=== PATIENT | female | born 1990 | race Caucasian/White ===

== ENCOUNTER 2022-08-22 07:13 | Outpatient (CLI) | payer BC ==
[2022-08-22] MEDS ORDERED: Iopamidol-370 76% 500 ML 1 ML ONE (09:20)
[2022-08-22] MEDS ORDERED: Iopamidol 370 76% 100 ML VIAL ONE (09:20)
== END 2022-08-22 07:14 | disposition home or self-care (01) ==
LOC: CSHRAD 07:13
PROVIDERS: ATTEND Urology
DX: Q62.5 Duplication of ureter (principal); R39.198 Other difficulties with micturition
CPT/HCPCS: 51600; 74410; 74455

== ENCOUNTER 2023-02-19 18:43 | Observation (INO) | payer BC ==
[~2023-02-19 18:43] MED LIST: Iopamidol 300 61% 100 ML VIAL FS ONE
[2023-02-19] MEDS ORDERED: Morphine 4 MG/ML VIAL ONE (18:53)
[2023-02-19] MEDS ORDERED: Ondansetron PF 4 MG/2 ML Vial ONE (18:54)
[2023-02-19 19:18] LABS: #Eosinphils 0.1 10x3/uL (0.0-0.5); #Monocytes 0.7 10x3/uL (0.0-1.1); #Neutrophils 7.6 10x3/uL (1.5-8.4); %Basophils 0.3 % (0.0-2.0); %Lymphocytes 31.1 % (18.0-47.0); %Monocytes 5.9 % (0.0-10.0); %Neutrophils 61.5 % (40.0-75.0); Hemoglobin 13.4 g/dL (12.0-15.5); Mean Corpuscular HGB CONC 33.4 g/dL (32.0-36.0); Mean Corpuscular Hemoglobin 29.1 pg (27.0-33.0); Mean Corpuscular Volume 87.2 fl (81.6-98.3); Mean Platelet Volume 11.7 fl (7.4-10.4); Platelet Count 243 10x3/uL (150-450); RBC Distribution Width 12.2 % (11.5-14.5); White Blood Cell (WBC) Count 12.4 10x3/uL (3.5-10.5)
[2023-02-19 19:28] LABS: ALT (SGPT) 36 U/L (8-55); AST (SGOT) 54 U/L (5-34); Albumin 4.1 g/dL (3.5-5.0); Alkaline Phosphatase 78 U/L (40-110); Anion Gap 14 mmol/L (10-20); BUN (Urea Nitrogen) 18 mg/dL (7.0-18.7); Bilirubin, Total 0.5 mg/dL (0.2-1.2); Calc. Creatinine Clearance 0 mL/min (70-130); Calcium 8.8 mg/dL (7.8-10.44); Carbon Dioxide 22 mmol/L (22-29); Chloride 106 mmol/L (98-107); Estimated GFR 107; Globulin 2.9 g/dL (2.4-3.5); Glucose 110 mg/dL (70-105); Lipase 72 U/L (8-78); Potassium 3.3 mmol/L (3.5-5.1); Sodium 139 mmol/L (136-145)
[2023-02-19] MEDS ORDERED: Dicyclomine 20 MG TAB ONE (19:55)
[2023-02-19 21:08] LABS: Magnesium 2.3 mg/dL (1.6-2.6)
[2023-02-19 21:16] LABS: Prothrombin Time 10.8 sec (9.5-12.1)
[2023-02-19 22:31] LABS: Bilirubin Neg (Negative); Blood, Urine Negative (Negative); Clarity Slightly Cloudy (Clear); Glucose, Urine (Dipstick) Normal (Negative); Ketone, Urine 50 mg/dL (Negative); Leukocyte Negative (Negative); Nitrite Negative (Negative); Protein, Urine (Dipstick) 30 mg/dl (Neg-Trace); Specific Gravity, Urine 1.015 (1.005-1.030)
[2023-02-19 22:38] LABS: RBC/HPF None Seen HPF (0-3)
[2023-02-19 22:40] LABS: Bacteria/HPF None Seen HPF (None Seen); WBC/HPF 0-3 HPF (0-3)
[2023-02-19 23:45] VITALS: BMI 31.2
[2023-02-19] MEDS ORDERED: Morphine 2 MG/ML VIAL SLOW IVP PRN (23:50)
[2023-02-19] MEDS ORDERED: Ondansetron PF 4 MG/2 ML Vial IVP PRN (23:59)
[2023-02-20] MEDS ORDERED: Acetaminophen 325 MG TAB PO PRN
[2023-02-20 06:08] LABS: Hemoglobin 12.4 g/dL (12.0-15.5)
[2023-02-20 06:47] VITALS: BP 86/53; TEMP 97.8
== END 2023-02-20 12:00 | disposition home or self-care (01) ==
LOC: CSHERS 18:43 → CSHTELE 23:28
PROVIDERS: ADMIT Surgery; ATTEND Surgery
DX: S36.113A Laceration of liver, unspecified degree, initial encounter (principal); E66.01 Morbid (severe) obesity due to excess calories; N12 Tubulo-interstitial nephritis, not specified as acute or chronic; Z88.0 Allergy status to penicillin; Z90.5 Acquired absence of kidney; Z79.899 Other long term (current) drug therapy; Z68.31 Body mass index [BMI] 31.0-31.9, adult
CPT/HCPCS: 36415; 74177; 80053; 81003; 81015; 83690; 83735; 85014; 85018; 85025; 85610; 86850; 86900; 86901; 96374; 96375; 96376; G0378; J2270; J2272; J2405; Q9967

== ENCOUNTER 2024-09-17 00:53 | Emergency (ER) | payer BC ==
[2024-09-17 01:52] LABS: Hematocrit 38.1 % (34.9-44.5); Hemoglobin 13.1 g/dL (12.0-15.5); Mean Corpuscular HGB CONC 34.4 g/dL (32.0-36.0); Mean Corpuscular Volume 87.2 fL (81.6-98.3); Mean Platelet Volume 10.6 fL (7.4-10.4); Platelet Count 154 10x3/uL (150-450); RBC Distribution Width 11.8 % (11.5-14.5); Red Blood Cell (RBC) Count 4.37 10x6/uL (3.90-5.03); White Blood Cell (WBC) Count 6.8 10x3/uL (3.5-10.5)
[2024-09-17 01:53] LABS: #Basophils 0.01 10x3/uL (0.0-0.2); #Eosinophils 0.01 10x3/uL (0.0-0.5); #Monocytes 0.45 10x3/uL (0.0-1.1); #Neutrophils 5.52 10x3/uL (1.5-8.4); %Basophils 0.1 % (0.0-2.0); %Eosinophils 0.1 % (0.0-6.0); %Lymphocytes 12.1 % (18.0-47.0); %Monocytes 6.6 % (0.0-10.0); %Neutrophils 80.8 % (40.0-75.0)
[2024-09-17] MEDS ORDERED: Ondansetron PF 4 MG/2 ML Vial ONE (01:58)
[2024-09-17 02:01] LABS: ALT (SGPT) 22 U/L (8-55); AST (SGOT) 15 U/L (5-34); Albumin 3.5 g/dL (3.5-5.0); Alkaline Phosphatase 50 U/L (40-110); Anion Gap 13 mmol/L (10-20); BUN (Urea Nitrogen) 10 mg/dL (7.0-18.7); Calc. Creatinine Clearance 0 mL/min (70-130); Calcium 8.6 mg/dL (7.8-10.44); Carbon Dioxide 22 mmol/L (22-29); Chloride 107 mmol/L (98-107); Estimated GFR 116; Globulin 2.7 g/dL (2.4-3.5); Glucose 89 mg/dL (70-105); Magnesium 1.8 mg/dL (1.6-2.6); Potassium 3.3 mmol/L (3.5-5.1); Protein, Total 6.2 g/dL (6.0-8.3); Sodium 139 mmol/L (136-145)
[2024-09-17 02:35] LABS: Lipase 26 U/L (8-78)
[2024-09-17] MEDS ORDERED: Ketorolac Tromethamine 30 MG (1 mL) VIAL ONE (02:37)
[2024-09-17 03:56] LABS: Bilirubin Neg (Negative); Blood, Urine 25 (Negative); Clarity Clear (Clear); Glucose, Urine (Dipstick) Normal (Negative); Ketone, Urine 5 mg/dL (Negative); Leukocyte Negative (Negative); Nitrite Negative (Negative); Protein, Urine (Dipstick) 15 mg/dl (Neg-Trace); Specific Gravity, Urine 1.025 (1.005-1.030); Urobilinogen Normal mg/dL (Less than 2)
[2024-09-17 04:06] LABS: CAUTI Indications for Culture Pelvic or flank pain; Pregnancy Test - Urine (BHCG) Negative (Negative); RBC/HPF 0-3 HPF (0-3); Specific Gravity 1.025 (1.002-1.036); WBC/HPF 0-3 HPF (0-3)
[2024-09-17 04:07] LABS: Bacteria/HPF 2+ HPF (None Seen); Mucous/LPF 1+ LPF (<2+); Pregu Control Background? CLEAR/WHITE (CLR/WHITE); Pregu Control Bar Appear? YES (CONTROL BAR); Urine Culture Reflex No No
== END 2024-09-17 04:19 | disposition home or self-care (01) ==
LOC: CSHERS 00:53
DX: E86.0 Dehydration (principal); E87.6 Hypokalemia; E11.9 Type 2 diabetes mellitus without complications
CPT/HCPCS: 80053; 81001; 81025; 83690; 83735; 85025; 96361; 96374; 96375; J1885; J2405